=== PATIENT | male | born 1955 | race Caucasian/White ===

== ENCOUNTER 2024-06-17 08:06 | Outpatient (OUT) | payer OTHER, SELFPAY ==
--- NOTE | 2024-06-17 08:12 | CA_ITS ---
Patient Name: DEMOND QUINN MR#: [id number] : 1955 Exam Date: 06/17/2024 Ordering Doctor: DR MARVIN ROSADO ECHOCARDIOGRAM REPORT PROCEDURE: CA ECHO DOPPLER COMPLETE INDICATIONS: Abnormal EKG COMPARISON: None. DESCRIPTION: COMPLETE ECHOCARDIOGRAM Real-time transthoracic echocardiography with 2D, M-mode, spectral and color flow Doppler performed. QUALITY: Technical quality was good. LEFT VENTRICLE: Normal chamber size. Severe concentric left ventricular hypertrophy. LV EF: Global left ventricular systolic function is normal. Calculated left ventricular ejection fraction is 60%. No significant wall motion abnormalities. DIASTOLIC: Diastolic function is indeterminate. ATRIAL SEPTUM: Inadequately seen. LEFT ATRIUM: Normal chamber size. RIGHT ATRIUM: Mild dilatation. RIGHT VENTRICLE: Normal chamber size. Normal right ventricular systolic function. TRICUSPID VALVE: Normal mobility and thickness. Mild regurgitation. Moderate pulmonary hypertension. RVSP 48mmHg MITRAL VALVE: Normal mobility and thickness. No evidence of mitral valve stenosis. There is no mitral annular calcification. Trivial mitral regurgitation. AORTIC VALVE: Normal trileaflet appearance. No visible sclerosis. Normal leaflet mobility. No evidence of aortic valve stenosis. No aortic regurgitation. AORTIC ROOT: Normal diameter and appearance. PULMONIC VALVE: Normal thickness and mobility. No stenosis. No regurgitation. PERICARDIUM: Anterior free space; trivial effusion versus fat pad. IVC: Mildly dilated measuring 2.3cm with no collapse. CONCLUSION: 1. Global left ventricular systolic function is normal; visually estimated ejection fraction is 60 to 65% 2. Severe left ventricular hypertrophy 3. Normal right ventricular size and systolic function 4. Diastolic function is indeterminate 5. Mild right atrial dilatation 6. Mild tricuspid regurgitation 7. Moderately elevated right ventricular systolic pressure; RVSP 48 mmHg 8. Anterior free space; trivial effusion versus fat pad Adult Echocardiography Procedure Report Left Ventricle LVEDD (3.7 - 5.6 cm): 4.14 cm LVESD (2.2 - 4.0 cm): 3.04 cm LVIVS thickness (0.6 - 1.2 cm): 1.61 cm LVPW thickness (0.5 - 1.0 cm): 1.66 cm e': 0.07 m/s E - e': 7.44 LVOT Max Gradient: 2.48 mm[Hg], 2.71 mm[Hg] LVOT Area (cm2): 0.80 m/s Peak Velocity (LVOT): 0.79 m/s, 0.82 m/s Mean Velocity (LVOT): 0.57 m/s LVOT Diameter 2.44 cm Left Ventricular Ejection Fraction: 60.18 % Left Atrium LA Volume Index (2D A2C): 26.87 ml/m2 Left Atrium Systolic Dimension: 4.14 cm Mitral Valve MV E to A Ratio: 0.70 Mitral Valve A-Wave Peak Velocity: 0.79 m/s Mitral Valve E-Wave Peak Velocity: 0.55 m/s Right Ventricle RV Internal Diastolic Dimension: 2.61 cm Aorta AO Root Diam: 3.69 cm Ascending Ao Diam: 3.53 cm Aortic Valve AoV Area (Peak Hardeep): 3.10 cm2, 2.99 cm2, 3.21 cm2 AoV Area (VTI): 3.23 cm2, 3.20 cm2, 3.26 cm2 Peak Velocity(Antegrade Flow): 1.23 m/s, 1.19 m/s Peak Gradient(Antegrade Flow): 6.00 mm[Hg], 5.69 mm[Hg] Mean Velocity(Antegrade Flow): 0.85 m/s, 0.87 m/s Mean Gradient(Antegrade Flow): 3.29 mm[Hg], 3.39 mm[Hg] Velocity Time Integral: 24.13 cm, 25.45 cm Tricuspid Valve Peak Velocity (Regurgitant Flow): 2.88 m/s, 2.87 m/s, 2.82 m/s Pulmonic Valve Mean Gradient: 2.00 mm[Hg], 2.25 mm[Hg] Mean Velocity: 0.67 m/s, 0.73 m/s Peak Velocity: 0.92 m/s, 0.85 m/s Peak Gradient: 2.87 mm[Hg], 3.50 mm[Hg], 3.22 mm[Hg] Right Atrium Right Atrium Systolic Pressure: 28.97 ml, 28.97 ml Dictated by: Hiren Ceballos M.D. on 06/17/2024 at 12:28 Approved by: Hiren Ceballos M.D. on 06/17/2024 at 12:32
== END 2024-06-17 08:07 | disposition home or self-care (01) ==
LOC: CARD 08:09
PROVIDERS: PCP Internal Medicine; Visit Provider Physician Assistant
DX: I49.9 Cardiac arrhythmia, unspecified (principal); I10 Essential (primary) hypertension; R94.31 Abnormal electrocardiogram [ECG] [EKG]
CPT/HCPCS: 93306

== ENCOUNTER 2024-08-21 09:52 | Outpatient (OUT) | payer MEDICARE, OTHER, SELFPAY ==
[2024-08-22 04:07] LABS: Testosterone 376 ng/dL (264-916)
== END 2024-08-21 09:53 | disposition home or self-care (01) ==
PROVIDERS: PCP Internal Medicine; Visit Provider Urology
DX: R68.82 Decreased libido (principal)
CPT/HCPCS: 36415; 84403